=== PATIENT | female | born 1975 | race Two or more races ===

== ENCOUNTER 2018-01-03 18:22 | Emergency (ER) | payer OTHER ==
[~2018-01-03] VITALS: Ht 160 cm; Wt 93.0 kg
[~2018-01-03 18:22] MED LIST: CEFTIN250 MG PO; CLONAZEPAM0.5 MG; URIN D.S. TABLE1 TAB PO
== END 2018-01-03 22:11 | disposition home or self-care (01) ==
LOC: ER 18:22
DX: M54.89 Other dorsalgia (principal); D50.9 Iron deficiency anemia, unspecified; F06.4 Anxiety disorder due to known physiological condition

== ENCOUNTER 2018-04-19 16:22 | Emergency (ER) | payer OTHER ==
[~2018-04-19] VITALS: Ht 157.5 cm; Wt 97.5 kg
[2018-04-19] MEDS ORDERED: PREVACID30 MG (16:42)
[2018-04-19] MEDS ORDERED: CARAFATE1 GM/10 ML (16:42)
== END 2018-04-19 22:03 | disposition home or self-care (01) ==
LOC: ER 16:22
DX: N20.1 Calculus of ureter (principal); N30.80 Other cystitis without hematuria

== ENCOUNTER 2018-04-21 02:47 | Emergency (ER) | payer OTHER ==
[~2018-04-21] VITALS: Ht 160 cm; Wt 97.5 kg
[~2018-04-21 02:47] MED LIST changes: +CARAFATE1 GM/10 ML; +PREVACID30 MG
== END 2018-04-21 06:37 | disposition home or self-care (01) ==
LOC: ER 02:47
DX: R00.2 Palpitations (principal); T39.395A Adverse effect of other nonsteroidal anti-inflammatory drugs [NSAID], initial encounter; Y92.89 Other specified places as the place of occurrence of the external cause

== ENCOUNTER 2019-08-05 05:49 | Emergency (ER) | payer OTHER ==
[~2019-08-05] VITALS: Ht 160 cm; Wt 89.4 kg
[2019-08-05] MEDS ORDERED: ADVIL (06:23)
[2019-08-05] MEDS ORDERED: BUTALB-ACETAMI1 EACH PO (11:48)
== END 2019-08-05 12:13 | disposition home or self-care (01) ==
LOC: ER 05:49
DX: R51 Headache (principal)

== ENCOUNTER 2019-09-26 03:48 | Emergency (ER) | payer OTHER ==
[~2019-09-26] VITALS: Ht 160 cm; Wt 90.7 kg
[~2019-09-26 03:48] MED LIST changes: +ADVIL; +BUTALB-ACETAMI1 EACH PO
== END 2019-09-26 10:57 | disposition home or self-care (01) ==
LOC: ER 03:48
DX: N39.0 Urinary tract infection, site not specified (principal); R10.32 Left lower quadrant pain

== ENCOUNTER 2020-02-14 09:02 | Emergency (ER) | payer OTHER ==
[~2020-02-14] VITALS: Ht 162.6 cm; Wt 95.3 kg
[2020-02-14] MEDS ORDERED: PROPRANOLOL HCL10 MG PO (13:35)
[2020-02-14] MEDS ORDERED: CLONAZEPAM1 MG PO (13:35)
== END 2020-02-14 13:51 | disposition home or self-care (01) ==
LOC: ER 09:02
DX: R00.2 Palpitations (principal); R07.89 Other chest pain; F41.8 Other specified anxiety disorders

== ENCOUNTER 2020-04-24 01:44 | Emergency (ER) | payer OTHER ==
[~2020-04-24] VITALS: Ht 160 cm; Wt 98.9 kg
[~2020-04-24 01:44] MED LIST changes: +CLONAZEPAM1 MG PO; +PROPRANOLOL HCL10 MG PO
[2020-04-24] MEDS ORDERED: CLONAZEPAM1 MG PO (03:49)
[2020-04-24] MEDS ORDERED: METOPROLOL SUCC25 MG PO (03:49)
== END 2020-04-24 03:59 | disposition home or self-care (01) ==
LOC: ER 01:44
DX: R00.2 Palpitations (principal); F41.8 Other specified anxiety disorders

== ENCOUNTER 2021-03-24 19:57 | Emergency (ER) | payer OTHER ==
[~2021-03-24] VITALS: Ht 160 cm; Wt 93.4 kg
[~2021-03-24 19:57] MED LIST changes: +METOPROLOL SUCC25 MG PO
[2021-03-25] MEDS ORDERED: PYRIDIUM200 MG PO (01:42)
[2021-03-25] MEDS ORDERED: LEVOFLOXACIN500 MG PO (01:42)
== END 2021-03-25 01:54 | disposition home or self-care (01) ==
LOC: ER 19:57
DX: N39.0 Urinary tract infection, site not specified (principal); F41.8 Other specified anxiety disorders; R07.89 Other chest pain; R00.0 Tachycardia, unspecified; M77.9 Enthesopathy, unspecified

== ENCOUNTER 2021-06-25 11:02 | Emergency (ER) | payer OTHER ==
[~2021-06-25] VITALS: Ht 160 cm; Wt 95.3 kg
[~2021-06-25 11:02] MED LIST changes: +LEVOFLOXACIN500 MG PO; +PYRIDIUM200 MG PO
== END 2021-06-25 12:56 | disposition home or self-care (01) ==
LOC: ER 11:02
DX: M54.2 Cervicalgia (principal)

== ENCOUNTER 2023-02-11 21:19 | Emergency (ER) | payer OTHER ==
[~2023-02-11] VITALS: Ht 160 cm; Wt 98.9 kg
[2023-02-11] MEDS ORDERED: DEXILANT30 MG (21:27)
== END 2023-02-12 01:43 | disposition home or self-care (01) ==
LOC: ER 21:19
DX: G43.809 Other migraine, not intractable, without status migrainosus (principal)

== ENCOUNTER 2023-08-08 09:45 | Emergency (ER) | payer OTHER ==
[~2023-08-08] VITALS: Ht 160 cm; Wt 104.3 kg
[~2023-08-08 09:45] MED LIST changes: +DEXILANT30 MG
[2023-08-08 11:34] LABS: URINE APPEARANCE Clear; URINE BILIRRUBIN Negative (NEGATIVE); URINE BLOOD Negative; URINE COLOR Dark Yellow; URINE GLUCOSE Negative (NEGATIVE); URINE LEUKOCYTE Negative; URINE NITRATE Negative; URINE PROTEIN Negative (NEGATIVE); URINE UROBILINOGEN 0.2 E.U./dl
[2023-08-08 11:38] LABS: URINE BACTERIA 270.9 uL (0.0-1933); URINE EPITHELIAL CELLS 6.9 uL (0.0-38.8); URINE RBC 2.1 uL (0.0-20.8); URINE WBC 1.8 uL (0.0-23.2)
[2023-08-08 11:44] LABS: HEMATOCRIT 32.3 % (36.0-45.00); HEMOGLOBIN 10.7 g/dL (12.0-15.00); MEAN CORPUSCULAR HEMOGLOBIN 23.5 pg (27.00-32.0); MEAN CORPUSCULAR HGB CONC 33.1 g/dl (32.0-36.0); PLATELET COUNT 287 K/uL (150-450); RED BLOOD COUNT 4.55 M/uL (4.00-6.00); RED CELL DISTRIBUTION WIDTH 16.5 % (11.5-14.5)
[2023-08-08 12:07] LABS: CREATININE SERUM 0.79 mg/dL (0.55-1.02); GFR 78.01; POTASSIUM 3.85 mEq/L (3.5-5.1)
== END 2023-08-08 14:42 | disposition home or self-care (01) ==
LOC: ER 09:45
PROVIDERS: Emergency Medicine
DX: R10.31 Right lower quadrant pain (principal); N20.0 Calculus of kidney; D25.9 Leiomyoma of uterus, unspecified

== ENCOUNTER 2024-03-25 07:47 | Emergency (ER) | payer OTHER ==
[~2024-03-25] VITALS: Ht 160 cm; Wt 101.2 kg
[2024-03-25 09:06] LABS: HEMATOCRIT 34.3 % (36.0-45.00); HEMOGLOBIN 11.6 g/dL (12.0-15.00); MEAN CELL VOLUME 74.8 fL (80.00-100.00); MEAN CORPUSCULAR HEMOGLOBIN 25.3 pg (27.00-32.0); MEAN CORPUSCULAR HGB CONC 33.9 g/dl (32.0-36.0); PLATELET COUNT 251 K/uL (150-450); RED BLOOD COUNT 4.58 M/uL (4.00-6.00); RED CELL DISTRIBUTION WIDTH 16.5 % (11.5-14.5)
[2024-03-25 09:37] LABS: CALCIUM 9.6 mg/dL (8.5-10.1); CREATININE SERUM 0.81 mg/dL (0.55-1.02); GFR 75.79; POTASSIUM 4.19 mEq/L (3.5-5.1)
== END 2024-03-25 10:21 | disposition home or self-care (01) ==
LOC: ER 07:48
PROVIDERS: General Practice
DX: R00.2 Palpitations (principal); F41.9 Anxiety disorder, unspecified

== ENCOUNTER 2025-06-15 03:47 | Emergency (ER) | payer OTHER ==
[~2025-06-15] VITALS: Ht 162.6 cm; Wt 101.2 kg
[2025-06-15 06:01] LABS: ALT/SGPT 34.0 U/L (12-78); AST/SGOT 49.0 U/L (15-37); BILIRUBIN TOTAL 0.21 mg/dL (0.3-1.2); BUN CREA RATIO 22.0 (7.0-25.0); CREATININE SERUM 0.85 mg/dL (0.55-1.02); GFR 71.38; GLOBULINA 4.0 G/DL (2.4-3.5); GLUCOSE FASTING 109.0 mg/dL (65-100); OSMOLALITY SERUM 279.0 MOSM/KG (275-295); TSH 0.866 uIU/mL (0.358-3.74)
[2025-06-15 06:03] LABS: BASO % 0.6 % (0.1-1.2); EOS # 0.16 (0.04-0.54); EOS % 1.6 % (0.7-7.0); LYMPH # 1.64 (1.18-3.74); LYMPH % 16.4 % (19.3-53.1); MEAN PLATELET VOLUME 11.10 fl (9.4-12.4); MONO # 0.79 (0.24-0.82); MONO % 7.9 % (4.7-12.5); NEUT # 7.33 (1.56-6.13); NEUT % 73.2 % (34.0-71.1); RED CELL DISTRIBUTION WIDTH 16.2 % (11.6-14.4)
== END 2025-06-15 06:58 | disposition home or self-care (01) ==
LOC: ER 03:47
PROVIDERS: General Practice
DX: F41.9 Anxiety disorder, unspecified (principal); R00.2 Palpitations